=== PATIENT | male | born 2000 | race Caucasian/White ===

== ENCOUNTER 2024-01-12 12:40 | Emergency (ER) | payer OTHER, SELFPAY ==
[2024-01-12 12:42] VITALS: BP 135/85
--- NOTE | 2024-01-12 14:35 | ED.GENMED ---
History of Present Illness
General
Chief Complaint: Skin Problem
Source: patient and family
Exam Limitations: none
Time Seen by Provider: 01/12/24 13:22
Nursing documentation reviewed up to this point in time: agreed with
History of Present Illness
History of Present Illness:
43-year-old male presenting to the emergency department today with concerns of multiple abscesses to left thigh and left elbow started last week started taking Bactrim 3 days ago and went to [facility] where they were able to remove some
degree of pus. Denies any systemic symptoms fevers nausea vomiting.
Past History
Past History
ED Past Medical History: Other (Gastritis/colitis); Negative Asthma, HTN, Hypercholesterolemia or NIDDM
ED Past Surgical History: None
Social History
Tobacco: Smoker
Alcohol: Occasional
Drug: None
Personal: Single
Living: with family
Family History
Family History: Other (Ulcerative colitis)
Review of Systems
Review of Systems
Allergies reviewed?: Yes
All Other Systems: ROS reviewed and negative except as documented in HPI and ROS
Phy Exam
Physical Exam
Physical Exam:
GENERAL: Alert , in no apparent distress
EYE: pupils equal and reactive
NECK: Supple, no significant adenopathy.
ENT: o/p clr, mmm.
CARDIAC: Regular rate and rhythm .
LUNGS: Clear breath sounds bilaterally, no acute respiratory distress, no wheezes/rales/rhonchi
ABDOMEN: Soft, without focal tenderness, no r/g, no cvat
NEUROLOGICAL: Alert and oriented, no focal neuro deficits
SKIN: Multiple areas of fluctuance induration to the left inner thigh 2 areas that are roughly 1 cm in diameter tender to also an area to the left medial calf region 2.5 cm in total diameter. Very small area to the left elbow. Warm and dry, skin
intact.
MUSCULOSKELETAL: No edema, well perfused.
PSYCH: Normal and appropriate interaction.
Course
Orders/Labs/Results
Orders:
Orders
01/12/24 14:31
Oxycodone/Acetaminophen [Percocet 5/325] 2 tablet PO NOW STA
Vital Signs
Initial and Last Documented VS:
Initial Vital Signs
Temp Pulse Resp BP Pulse Ox
98.4 F 71 16 135/85 100
01/12/24 12:42 01/12/24 12:42 01/12/24 12:42 01/12/24 12:42 01/12/24 12:42
Last Documented Vital Signs
Temp Pulse Resp BP Pulse Ox
98.4 F 71 16 135/85 100
01/12/24 12:42 01/12/24 12:42 01/12/24 12:42 01/12/24 12:42 01/12/24 12:42
Procedures
Incision/Drainage/Joint Aspiration
Left Medial Thigh:
Anethesia: 1% Lidocaine with Epi
Preparation: cleaned with Hibiclens
Type of procedure: incise and drain
Nature of site: abscess
Description of abscess: less than 3cm
Loculations broken up: Yes
How much fluid was obtained?: small amount
Fluid description: purulent
Treatment: left open for drainage
Left Anterior Medial Thigh:
Anethesia: 1% Lidocaine with Epi
Preparation: cleaned with Hibiclens
Type of procedure: incise and drain
Nature of site: abscess
Description of abscess: less than 3cm
Loculations broken up: Yes
How much fluid was obtained?: small amount
Fluid description: purulent
Treatment: left open for drainage
Left Medial Calf:
Anethesia: 1% Lidocaine with Epi
Preparation: cleaned with Hibiclens
Type of procedure: incise and drain
Nature of site: abscess
Description of abscess: greater than 3cm
Loculations broken up: Yes
How much fluid was obtained?: small amount
Fluid description: purulent
Treatment: left open for drainage
MDM/Problems Addressed
MDM/Problems Addressed:
23-year-old male presenting to the emergency department with concerns of ongoing abscess symptoms. Has been taking Bactrim with no improvement. No continued drainage. Here patient does have multiple small abscesses. These were incised and
drained which were not specifically incised and drained in the past. Otherwise patient will be stable for discharge no signs of systemic illness advised her close outpatient follow-up. Return precautions given.
*Critical Care Note
Total Time (30-74mins, 75-104mins- exclusive of procedures): Not Applicable
ED Attending Note
-
Portions of this chart may have been created with voice recognition software.� Occasional wrong word or��sound alike� substitutions may have occurred due to the inherent limitations of voice recognition software.
Discharge Plan
Departure
Patient Disposition: Home (Routine Discharge)
Date of Disposition: 01/12/24
Time of Disposition: 14:35
Patient with high blood pressure during this ER visit?: No
Condition: Good
Covid-19: Not Applicable
Discharge Problem:
Abscess of skin
Instructions: Skin Abscess
Prescriptions:
New
sulfamethoxazole-trimethoprim [Bactrim DS] 800-160 mg tablet
2 tab PO BID 5 Days Qty: 20 0RF
No Action
vortioxetine [Trintellix] 10 MG tablet
10 mg PO DAILY
ondansetron HCl 4 MG tablet
4 mg PO TIDPRN PRN (Reason: nausea and vomiting) Qty: 10 0RF
lorazepam 1 MG tablet
1 mg PO Q8HPRN PRN (Reason: anxiety) Qty: 10 0RF
cyclobenzaprine 10 MG tablet
10 mg PO TIDPRN PRN (Reason: muscle spasm) Qty: 30 0RF
ibuprofen 800 MG tablet
800 mg PO QIDPRN PRN (Reason: pain, fever. Take with food.) Qty: 30 0RF
cyclobenzaprine 10 MG tablet
10 mg PO TIDPRN PRN (Reason: spasm) Qty: 12 0RF
Activity Restrictions/Additional Instructions:
You came to the emergency department today with concerns of ongoing abscess and infectious symptoms of your leg and left elbow. This was drained here. Please take Bactrim 2 pills twice daily over the next 5 days. Please also continue to use the
mupirocin to the affected area and use warm compresses to the sites of drainage. Additionally use chlorhexidine body wash once daily for the next 7 days. Return to the emergency department any worsening, new or concerning symptoms. Follow-up
closely with the primary care doctor in the next week for reassessment.
Interventions
Interventions:
*Risk Screen - Suicide Last Done: 01/12/24 12:42
*General Assessment Last Done: 01/12/24 12:42
*Neglect/Abuse Screening Last Done: 01/12/24 12:42
ED- Fall Risk Assessment Last Done: 01/12/24 13:00
*ED COVID-19 Vaccine History Last Done: 01/12/24 13:00
ED-Skin Assessment Last Done: 01/12/24 14:47
Discharge Date and Time
Print Language: MALTESE
[2024-01-12 14:38] VITALS: BMI 23.0
[2024-01-12] MEDS: PERCOCET 5/325 2 TABLET PO (14:39)
== END 2024-01-12 15:05 | disposition home or self-care (01) ==
LOC: EMR 12:40
PROVIDERS: EMERGENCY PHYSICIAN Student in an Organized Health Care Education/Training Program
DX: L02.416 Cutaneous abscess of left lower limb (principal); L02.414 Cutaneous abscess of left upper limb; F17.200 Nicotine dependence, unspecified, uncomplicated
CPT/HCPCS: 10061; 99283